=== PATIENT | male | born 1955 | race Caucasian/White ===

== ENCOUNTER 2021-01-02 11:06 | Outpatient (CLI) | payer BC | END 2021-01-02 11:07 | disposition home or self-care (01) | LOC: PET 11:06 | PROVIDERS: ATTEND Internal Medicine Hematology & Oncology | DX: C83.32 Diffuse large B-cell lymphoma, intrathoracic lymph nodes (principal) | CPT/HCPCS: 78815; A9552 ==

== ENCOUNTER 2021-05-01 09:30 | Outpatient (CLI) | payer BC | END 2021-05-01 09:31 | disposition home or self-care (01) | LOC: PET 09:30 → MERGE 09:30 → PET 09:31 | PROVIDERS: ATTEND Internal Medicine Hematology & Oncology | DX: C83.32 Diffuse large B-cell lymphoma, intrathoracic lymph nodes (principal) | CPT/HCPCS: 78815; A9552 ==

== ENCOUNTER 2021-11-04 09:30 | Outpatient (CLI) | payer BC | END 2021-11-04 09:31 | LOC: PET 09:30 | PROVIDERS: ATTEND Internal Medicine Hematology & Oncology | DX: C83.32 Diffuse large B-cell lymphoma, intrathoracic lymph nodes (principal); C78.00 Secondary malignant neoplasm of unspecified lung; C78.7 Secondary malignant neoplasm of liver and intrahepatic bile duct | CPT/HCPCS: 78815; A9552 ==

== ENCOUNTER 2023-08-26 05:47 | Day surgery (SDC) | payer OTHER ==
[2023-08-25 09:12] VITALS: BMI 26.4
[2023-08-26] MEDS ORDERED: Ketorolac Tromethamine 30 MG (1 mL) VIAL ONE (06:14)
[2023-08-26] MEDS ORDERED: CEFAZOLIN 2 GM VIAL ONE (06:15)
[2023-08-26] MEDS ORDERED: Sodium Chloride 0.9% 100 ML ONE (06:15)
[2023-08-26] MEDS ORDERED: Acetaminophen 500 MG TAB ONE (06:15)
[2023-08-26] MEDS ORDERED: EPINEPHrine 1 MG/ML VIAL ONE (06:44)
[2023-08-26] MEDS ORDERED: Bupivacaine 0.25% HCL 30 ML VIAL ONE (06:44)
[2023-08-26] MEDS ORDERED: Lidocaine 1% PF 5 ML VIAL ONE (07:02)
[2023-08-26] MEDS ORDERED: Midazolam HCl 2 mg/2 ml Vial ONE (07:21)
[2023-08-26] MEDS ORDERED: PROPOFOL 40 ML ONE (07:21)
[2023-08-26] MEDS ORDERED: fentaNYL PF 100 MCG/2 ML SYRINGE ONE (07:21)
[2023-08-26] MEDS ORDERED: Ondansetron PF 4 MG/2 ML Vial ONE (07:48)
[2023-08-26] MEDS ORDERED: Dexamethasone 20 MG/5 ML VIAL ONE (07:48)
[2023-08-26] MEDS ORDERED: ePHEDrine Sulfate 50 MG/10 ML VIAL ONE (07:51)
== END 2023-08-26 09:00 | disposition home or self-care (01) ==
LOC: SDC 05:47
PROVIDERS: ATTEND Specialist
PROC: 0JH63WZ Insertion of Totally Implantable Vascular Access Device into Chest Subcutaneous Tissue and Fascia, Percutaneous Approach (ICD-10-PCS; principal; 2023-08-26)
DX: C85.80 Other specified types of non-Hodgkin lymphoma, unspecified site (principal)
CPT/HCPCS: 36561; 71045; C1788; J0171; J0665; J1100; J1642; J1885; J2250; J2405; J2704; J3490

== ENCOUNTER 2023-09-10 08:20 | Observation (INO) | payer OTHER ==
[2023-09-10 10:25] VITALS: BMI 26.6
[2023-09-10] MEDS: Dexamethasone 4 MG TAB PO SCH (10:44)
[2023-09-10] MEDS ORDERED: Senokot S 8.6-50 MG TAB PO PRN (11:11)
[2023-09-10] MEDS ORDERED: Acetaminophen 650 MG Suppository PR PRN (11:11)
[2023-09-10] MEDS ORDERED: Acetaminophen 325 MG TAB PO PRN (11:11)
[2023-09-10] MEDS ORDERED: Calcium Carbonate 500 MG ChewTAB PO PRN (11:11)
[2023-09-10] MEDS ORDERED: PROCHLORPERAZINE MALEATE 10 MG PO PRN (11:12)
[2023-09-10] MEDS: SODIUM CHLORIDE 0.9% IVPB SCH (11:20)
[2023-09-10] MEDS: CYTARABINE IVPB SCH (11:20)
[2023-09-10] MEDS ORDERED: Prochlorperazine Maleate 5 MG TAB PO PRN (12:04)
[2023-09-10] MEDS: Ondansetron ODT 4 MG TAB PO PRN (12:15)
[2023-09-10] MEDS: Ondansetron PF 4 MG/2 ML Vial IVP PRN (18:01)
[2023-09-10 19:55] LABS: #Basophils Less than 0.03 10x3/uL (0.0-0.2); #Eosinphils Less than 0.03 10x3/uL (0.0-0.7); %Lymphocytes 0.7 % (21.0-51.0); %Monocytes 2.7 % (0.0-10.0); %Neutrophils 95.8 % (42.0-75.0); Hematocrit 32.5 % (42.0-52.0); Hemoglobin 10.8 g/dL (14.0-18.0); Mean Corpuscular HGB CONC 33.2 g/dL (32.0-36.0); Mean Corpuscular Hemoglobin 28.5 pg (27.0-31.0); Mean Corpuscular Volume 85.8 fL (78.0-98.0); Mean Platelet Volume 8.8 fL (7.4-10.4); Platelet Count 142 10x3/uL (130-400); RBC Distribution Width 15.4 % (11.5-14.5); Red Blood Cell (RBC) Count 3.79 mill/uL (4.70-6.10)
[2023-09-10] MEDS: Fluconazole 100 MG TAB PO SCH (20:04)
[2023-09-10] MEDS: Famotidine 20 MG TAB PO SCH (20:04)
[2023-09-10] MEDS: Allopurinol 300 MG TAB PO SCH (20:04)
[2023-09-10] MEDS: Atorvastatin Calcium 40 MG TAB PO SCH (20:04)
[2023-09-10] MEDS: Tamsulosin HCl 0.4 MG CAP PO SCH (20:04)
[2023-09-10 20:20] LABS: ALT (SGPT) 36 U/L (8-55); AST (SGOT) 29 U/L (5-34); Albumin 3.1 g/dL (3.4-4.8); Alkaline Phosphatase 87 U/L (40-110); Anion Gap 12 mmol/L (10-20); BUN (Urea Nitrogen) 27 mg/dL (8.4-25.7); Bilirubin, Total 0.3 mg/dL (0.2-1.2); Calc. Creatinine Clearance 97 mL/min (70-130); Calcium 8.2 mg/dL (7.8-10.44); Carbon Dioxide 20 mmol/L (23-31); Chloride 110 mmol/L (98-107); Estimated GFR 96; Globulin 2.9 g/dL (2.4-3.5); Glucose 157 mg/dL (80-115); Potassium 4.1 mmol/L (3.5-5.1); Sodium 138 mmol/L (136-145)
[2023-09-10] MEDS ORDERED: Non-Formulary Item 1 EACH (Atorvastatin Calcium [Atorvastatin Calcium] 80 MG Tablet) PO SCH (21:00)
[2023-09-11 05:54] LABS: #Basophils Less than 0.03 10x3/uL (0.0-0.2); #Eosinphils Less than 0.03 10x3/uL (0.0-0.7); %Basophils 0.1 % (0.0-1.0); %Lymphocytes 0.5 % (21.0-51.0); %Monocytes 1.8 % (0.0-10.0); Hematocrit 35.8 % (42.0-52.0); Hemoglobin 11.6 g/dL (14.0-18.0); Mean Corpuscular HGB CONC 32.4 g/dL (32.0-36.0); Mean Corpuscular Hemoglobin 27.4 pg (27.0-31.0); Mean Corpuscular Volume 84.6 fL (78.0-98.0); Mean Platelet Volume 9.3 fL (7.4-10.4); Platelet Count 148 10x3/uL (130-400); RBC Distribution Width 15.5 % (11.5-14.5); Red Blood Cell (RBC) Count 4.23 mill/uL (4.70-6.10)
[2023-09-11 06:20] LABS: Anion Gap 11 mmol/L (10-20); BUN (Urea Nitrogen) 23 mg/dL (8.4-25.7); Calc. Creatinine Clearance 102 mL/min (70-130); Calcium 8.3 mg/dL (7.8-10.44); Carbon Dioxide 21 mmol/L (23-31); Chloride 113 mmol/L (98-107); Estimated GFR 98; Glucose 144 mg/dL (80-115); Potassium 4.4 mmol/L (3.5-5.1); Sodium 141 mmol/L (136-145)
[2023-09-11] MEDS: Loratadine 10 MG TAB PO SCH (08:15)
[2023-09-11] MEDS: valACYclovir 500 MG TAB PO SCH (08:15)
[2023-09-11 16:20] VITALS: BP 129/80; TEMP 97.9
[2023-09-11] MEDS: PEGFILGRASTIM-JMDB 6 MG/0.6 ML SYRINGE SQ SCH (18:01)
== END 2023-09-11 18:08 | disposition home or self-care (01) ==
LOC: MSONC 08:20 → INTOOBSV 08:20
PROVIDERS: ADMIT Internal Medicine Hematology & Oncology; ATTEND Internal Medicine Critical Care Medicine
DX: C83.33 Diffuse large B-cell lymphoma, intra-abdominal lymph nodes (principal); H54.8 Legal blindness, as defined in USA; I10 Essential (primary) hypertension; E78.5 Hyperlipidemia, unspecified; N40.0 Benign prostatic hyperplasia without lower urinary tract symptoms; Z86.73 Personal history of transient ischemic attack (TIA), and cerebral infarction without residual deficits; Z88.4 Allergy status to anesthetic agent; Z88.8 Allergy status to other drugs, medicaments and biological substances; Z79.899 Other long term (current) drug therapy
CPT/HCPCS: 80048; 80053; 85025 ×2; 96365; 96366; 96372; 96375; 96376; G0378 ×2; J1642; J2405; J2506; J7050; J9100; Q0162; 36415; J8540

== ENCOUNTER 2023-09-17 09:23 | Day surgery (SDC) | payer OTHER ==
[2023-09-17] MEDS ORDERED: diphenhydrAMINE 25 MG CAP ONE (10:45)
[2023-09-17] MEDS ORDERED: Acetaminophen 500 MG TAB ONE (10:45)
[2023-09-17] MEDS: diphenhydrAMINE 25 MG CAP PO SCH (10:46)
[2023-09-17] MEDS: Acetaminophen 500 MG TAB PO SCH (10:46)
[2023-09-17 12:25] VITALS: BP 117/69; TEMP 98.2
== END 2023-09-17 12:28 | disposition home or self-care (01) ==
LOC: ONC/OP 09:23
PROVIDERS: ATTEND Nurse Practitioner Family
DX: D64.9 Anemia, unspecified (principal); D69.6 Thrombocytopenia, unspecified; Z88.8 Allergy status to other drugs, medicaments and biological substances; C83.32 Diffuse large B-cell lymphoma, intrathoracic lymph nodes
CPT/HCPCS: 36430; 80053; 84550; 86850; 86900; 86901; J1642; P9035

== ENCOUNTER 2023-10-01 09:02 | Inpatient (IN) | payer OTHER ==
[2023-10-01] MEDS ORDERED: Ondansetron PF 4 MG/2 ML Vial SLOW IVP PRN (11:45)
[2023-10-01] MEDS ORDERED: HYDROcodone/Acetaminophen 5/325 mg Tablet PO PRN (11:45)
[2023-10-01] MEDS ORDERED: Acetaminophen 325 MG TAB PO PRN (11:45)
[2023-10-01] MEDS ORDERED: Ondansetron ODT 4 MG TAB PO PRN (11:45)
[2023-10-01] MEDS ORDERED: HYDROcodone/Acetaminophen 10/325 mg Tablet PO PRN (11:45)
[2023-10-01] MEDS ORDERED: Bisacodyl 5 MG TAB PO PRN (11:48)
[2023-10-01] MEDS ORDERED: Senokot S 8.6-50 MG TAB PO PRN (11:48)
[2023-10-01] MEDS: Dexamethasone 4 MG TAB PO SCH (12:49)
[2023-10-01] MEDS: valACYclovir 500 MG TAB PO SCH (12:49)
[2023-10-01] MEDS: Pantoprazole DR 40 MG TAB PO SCH (12:50)
[2023-10-01 14:14] VITALS: BMI 26.3
[2023-10-01] MEDS: CYTARABINE IVPB SCH (15:23)
[2023-10-01] MEDS: SODIUM CHLORIDE 0.9% IVPB SCH (15:23)
[2023-10-01] MEDS: Tamsulosin HCl 0.4 MG CAP PO SCH (20:41)
[2023-10-01] MEDS: Allopurinol 300 MG TAB PO SCH (20:41)
[2023-10-01] MEDS: Fluconazole 100 MG TAB PO SCH (20:41)
[2023-10-02] MEDS ORDERED: PEGFILGRASTIM-PBBK 6 MG/0.6 ML SYRINGE SQ SCH (00:01)
[2023-10-02] MEDS ORDERED: traMADol HCl 50 MG TAB PO PRN ×2 (08:04)
[2023-10-02] MEDS: valACYclovir 500 MG TAB PO SCH (09:36)
[2023-10-02] MEDS: Pantoprazole DR 40 MG TAB PO SCH (09:37)
[2023-10-02 21:41] VITALS: TEMP 97.7
[2023-10-03 04:58] LABS: #Basophils Less than 0.03 10x3/uL (0.0-0.2); #Eosinphils Less than 0.03 10x3/uL (0.0-0.7); %Lymphocytes 0.3 % (21.0-51.0); %Monocytes 2.8 % (0.0-10.0); %Neutrophils 96.1 % (42.0-75.0); Hematocrit 23.7 % (42.0-52.0); Mean Corpuscular HGB CONC 33.8 g/dL (32.0-36.0); Mean Corpuscular Hemoglobin 29.1 pg (27.0-31.0); Mean Corpuscular Volume 86.2 fL (78.0-98.0); Mean Platelet Volume 9.1 fL (7.4-10.4); Platelet Count 201 10x3/uL (130-400); RBC Distribution Width 16.7 % (11.5-14.5); Red Blood Cell (RBC) Count 2.75 mill/uL (4.70-6.10)
[2023-10-03 05:15] LABS: ALT (SGPT) 28 U/L (8-55); AST (SGOT) 29 U/L (5-34); Albumin 2.4 g/dL (3.4-4.8); Alkaline Phosphatase 76 U/L (40-110); Anion Gap 7 mmol/L (10-20); BUN (Urea Nitrogen) 22 mg/dL (8.4-25.7); Bilirubin, Total 0.3 mg/dL (0.2-1.2); Calc. Creatinine Clearance 120 mL/min (70-130); Calcium 7.5 mg/dL (7.8-10.44); Carbon Dioxide 21 mmol/L (23-31); Chloride 113 mmol/L (98-107); Estimated GFR 103; Globulin 2.7 g/dL (2.4-3.5); Glucose 141 mg/dL (80-115); Potassium 3.6 mmol/L (3.5-5.1); Protein, Total 5.1 g/dL (5.8-8.1); Sodium 137 mmol/L (136-145)
[2023-10-03 08:03] VITALS: BP 110/67
[2023-10-03] MEDS: PEGFILGRASTIM-PBBK 6 MG/0.6 ML SYRINGE SQ SCH (10:01)
== END 2023-10-03 16:40 | disposition home or self-care (01) | DRG 847 ==
LOC: MSONC 09:12
PROVIDERS: ADMIT Internal Medicine; ATTEND Family Medicine
DX: Z51.11 Encounter for antineoplastic chemotherapy (principal); C83.33 Diffuse large B-cell lymphoma, intra-abdominal lymph nodes; I10 Essential (primary) hypertension; E78.5 Hyperlipidemia, unspecified; N40.0 Benign prostatic hyperplasia without lower urinary tract symptoms; H54.8 Legal blindness, as defined in USA; Z86.73 Personal history of transient ischemic attack (TIA), and cerebral infarction without residual deficits; Z87.891 Personal history of nicotine dependence; Z88.8 Allergy status to other drugs, medicaments and biological substances
CPT/HCPCS: 36416; 80053; 85025; J1642; J7050; J8540; J9100; Q5130

== ENCOUNTER 2023-10-10 09:27 | Observation (INO) | payer OTHER ==
[2023-10-10] MEDS ORDERED: Ondansetron PF 4 MG/2 ML Vial ONE (09:44)
[2023-10-10] MEDS ORDERED: Iopamidol-370 76% 500 ML MDV (1 ML CHARGE) ONE (09:49)
[2023-10-10] MEDS ORDERED: Morphine 4 MG/ML VIAL ONE (10:25)
[2023-10-10 10:44] LABS: Hematocrit 26.4 % (42.0-52.0); Hemoglobin 8.7 g/dL (14.0-18.0); Mean Corpuscular Hemoglobin 28.2 pg (27.0-31.0); Mean Corpuscular Volume 85.4 fL (78.0-98.0); Mean Platelet Volume 9.5 fL (7.4-10.4); Platelet Count 24 10x3/uL (130-400); RBC Distribution Width 15.9 % (11.5-14.5); Red Blood Cell (RBC) Count 3.09 mill/uL (4.70-6.10)
[2023-10-10 10:59] LABS: SARS-CoV-2 E Target Negative; SARS-CoV-2 N2 Target Negative; SARS-CoV-2 NAA Rapid Test Not Detected (NotDetected); SARS-CoV-2 RdRP gene Negative
[2023-10-10 11:07] LABS: Band 18 % (5-11); Eosinophils 1 % (0-10); Large Platelets 0.9 % (0-5); Lymphocytes 10 % (21-51); Macrocytosis SLIGHT = 6-15 cells HPF (0-5); Metamyelocyte 1 % (0-0); Monocytes 10 % (0-10); Neutrophil 58 % (42-75); Nucleated RBC (Manual Ct) 2 % (0); Ovalocytes SLIGHT = 2-5 cells HPF (0-1); Platelet Adequacy Comment Significant Decrease; Polychromasia SLIGHT = 2-3 cells HPF (0-2); Reactive Lymphocytes 2 % (0-10)
[2023-10-10 11:10] LABS: ALT (SGPT) 43 U/L (8-55); AST (SGOT) 35 U/L (5-34); Albumin 3.1 g/dL (3.4-4.8); Alkaline Phosphatase 108 U/L (40-110); Anion Gap 15 mmol/L (10-20); BUN (Urea Nitrogen) 14 mg/dL (8.4-25.7); Bilirubin, Total 0.6 mg/dL (0.2-1.2); Calc. Creatinine Clearance 0 mL/min (70-130); Calcium 9.6 mg/dL (7.8-10.44); Carbon Dioxide 26 mmol/L (23-31); Chloride 102 mmol/L (98-107); Estimated GFR 97; Glucose 112 mg/dL (80-115); Lipase 39 U/L (8-78); Potassium 3.7 mmol/L (3.5-5.1); Protein, Total 6.1 g/dL (5.8-8.1); Sodium 139 mmol/L (136-145)
[2023-10-10] MEDS ORDERED: Pantoprazole 40 MG VIAL ONE (13:38)
[2023-10-10] MEDS ORDERED: metroNIDAZOLE 500 MG (100 mL) BAG ONE (14:31)
[2023-10-10] MEDS ORDERED: Sodium Chloride 0.9% 100 ML ONE (14:32)
[2023-10-10] MEDS ORDERED: Piperacillin/Tazobactam 3.375 GM VIAL ONE (14:32)
[2023-10-10] MEDS ORDERED: Ondansetron PF 4 MG/2 ML Vial IVP PRN (15:54)
[2023-10-10] MEDS ORDERED: Acetaminophen 325 MG TAB PO PRN (15:54)
[2023-10-10 15:55] VITALS: BMI 22.4
[2023-10-10] MEDS ORDERED: Senokot S 8.6-50 MG TAB PO PRN (16:56)
[2023-10-10] MEDS: Promethazine 25 MG TAB PO PRN (17:32)
[2023-10-10] MEDS: HYDROcodone/Acetaminophen 5/325 mg Tablet PO PRN (17:48)
[2023-10-10] MEDS: Famotidine/PF 20 mg/2ml Vial SLOW IVP SCH (20:46)
[2023-10-10] MEDS: Fluconazole 100 MG TAB PO SCH (20:46)
[2023-10-10] MEDS: Atorvastatin Calcium 40 MG TAB PO SCH (20:46)
[2023-10-10] MEDS: Ascorbic Acid 500 mg Chewable Tablet PO SCH (20:46)
[2023-10-10] MEDS: Tamsulosin HCl 0.4 MG CAP PO SCH (20:46)
[2023-10-10] MEDS ORDERED: [UNRECOGNIZED DRUG - OTHER] PO SCH (21:00)
[2023-10-10] MEDS ORDERED: BOSWELLIA SERRA PO SCH (21:00)
[2023-10-10] MEDS ORDERED: D3 PO SCH (21:00)
[2023-10-10] MEDS ORDERED: GLUCOSAMINE PO SCH (21:00)
[2023-10-10] MEDS ORDERED: Allopurinol 300 MG TAB PO SCH (21:00)
[2023-10-10 23:03] LABS: Hematocrit 23.1 % (42.0-52.0); Hemoglobin 7.6 g/dL (14.0-18.0); Mean Corpuscular HGB CONC 32.9 g/dL (32.0-36.0); Mean Corpuscular Hemoglobin 27.5 pg (27.0-31.0); Mean Corpuscular Volume 83.7 fL (78.0-98.0); Platelet Count 33 10x3/uL (130-400); RBC Distribution Width 16.3 % (11.5-14.5); Red Blood Cell (RBC) Count 2.76 mill/uL (4.70-6.10)
[2023-10-10 23:27] LABS: Band 20 % (5-11); Large Platelets 1.9 % (0-5); Lymphocytes 5 % (21-51); Metamyelocyte 1 % (0-0); Monocytes 12 % (0-10); Myelocyte 1 % (0-0); Neutrophil 61 % (42-75); Nucleated RBC (Manual Ct) 2 % (0); Platelet Adequacy Comment Platelets Decreased; Polychromasia SLIGHT = 2-3 cells HPF (0-2); Smudge Cells 8.5 %
[2023-10-11 05:39] LABS: Hematocrit 23.4 % (42.0-52.0); Hemoglobin 7.8 g/dL (14.0-18.0); Mean Corpuscular HGB CONC 33.3 g/dL (32.0-36.0); Mean Corpuscular Hemoglobin 28.9 pg (27.0-31.0); Mean Corpuscular Volume 86.7 fL (78.0-98.0); Mean Platelet Volume 10.3 fL (7.4-10.4); Platelet Count 36 10x3/uL (130-400); RBC Distribution Width 16.2 % (11.5-14.5)
[2023-10-11 06:03] LABS: ALT (SGPT) 34 U/L (8-55); AST (SGOT) 27 U/L (5-34); Albumin 2.8 g/dL (3.4-4.8); Alkaline Phosphatase 90 U/L (40-110); Anion Gap 9 mmol/L (10-20); BUN (Urea Nitrogen) 9 mg/dL (8.4-25.7); Bilirubin, Total 0.4 mg/dL (0.2-1.2); Calc. Creatinine Clearance 95 mL/min (70-130); Calcium 8.6 mg/dL (7.8-10.44); Carbon Dioxide 25 mmol/L (23-31); Chloride 109 mmol/L (98-107); Estimated GFR 97; Globulin 2.7 g/dL (2.4-3.5); Glucose 87 mg/dL (80-115); Potassium 3.9 mmol/L (3.5-5.1); Protein, Total 5.5 g/dL (5.8-8.1); Sodium 139 mmol/L (136-145)
[2023-10-11 06:12] LABS: Band 14 % (5-11); Eosinophils 2 % (0-10); Large Platelets 3.8 % (0-5); Lymphocytes 7 % (21-51); Metamyelocyte 1 % (0-0); Monocytes 22 % (0-10); Neutrophil 55 % (42-75); Nucleated RBC (Manual Ct) 3 % (0); Platelet Adequacy Comment Platelets Decreased; Polychromasia SLIGHT = 2-3 cells HPF (0-2); Smudge Cells 6.7 %
[2023-10-11] MEDS: Magnesium Oxide 400 MG TAB PO SCH (08:54)
[2023-10-11] MEDS: Multivitamin W/ Minerals 1 TAB PO SCH (08:54)
[2023-10-11] MEDS: valACYclovir 500 MG TAB PO SCH (08:54)
[2023-10-11] MEDS: Loratadine 10 MG TAB PO SCH (08:54)
[2023-10-11] MEDS ORDERED: Enoxaparin 40 MG (0.4 mL) SYRINGE SC SCH (09:00)
[2023-10-11] MEDS ORDERED: Ondansetron ODT 4 MG TAB PO PRN (13:55)
[2023-10-11] MEDS ORDERED: Ondansetron ODT 8 MG TAB PO PRN (15:27)
[2023-10-11] MEDS ORDERED: Acetaminophen 325 MG TAB PO PRN (15:27)
[2023-10-11] MEDS ORDERED: Dexamethasone 4 MG TAB PO SCH (15:30)
[2023-10-11 16:24] VITALS: BP 109/79; TEMP 97.9
== END 2023-10-11 16:25 | disposition home or self-care (01) ==
LOC: ERS 09:27 → ERHOLD 14:18 → MSONC 17:02
PROVIDERS: ADMIT Family Medicine; ATTEND Family Medicine
DX: D61.818 Other pancytopenia (principal); D69.6 Thrombocytopenia, unspecified; C85.90 Non-Hodgkin lymphoma, unspecified, unspecified site; K29.70 Gastritis, unspecified, without bleeding; K20.90 Esophagitis, unspecified without bleeding; K29.80 Duodenitis without bleeding; J98.11 Atelectasis; I10 Essential (primary) hypertension; E78.5 Hyperlipidemia, unspecified; N40.0 Benign prostatic hyperplasia without lower urinary tract symptoms; Z95.5 Presence of coronary angioplasty implant and graft; Z80.0 Family history of malignant neoplasm of digestive organs; Z87.891 Personal history of nicotine dependence; Z88.4 Allergy status to anesthetic agent; Z88.8 Allergy status to other drugs, medicaments and biological substances
CPT/HCPCS: 36430; 71045; 74177; 80053 ×2; 83605; 83690; 85025 ×3; 86850; 86900; 86901; 93005; 96375; 96376; G0378 ×3; J2272; J2405; J2470; J2543; J3490 ×2; P9035; Q9967; U0002; 36415; Q0169